=== PATIENT | male | born 1990 | race Caucasian/White ===

== ENCOUNTER 2016-10-19 12:32 | Inpatient (IN) | payer MEDICAID, OTHER ==
[~2016-10-19] VITALS: Ht 188 cm; Wt 89.8 kg
[2016-10-20] MEDS ORDERED: CLINDAMYCIN 900MG IV 50 ML IV ONE (01:30)
[2016-10-20] MEDS ORDERED: LORazepam 2MG/ML-1ML VIAL IV ONE (01:30)
[2016-10-20] MEDS ORDERED: SODIUM CHLORIDE 0.9% 1,000 ML IVB ONE (01:30)
[2016-10-20] MEDS ORDERED: KETOROLAC TROMETH 30 MG/ML 1ML VIAL IV ONE (01:30)
[2016-10-20 01:45] LABS: Basophils # (auto) 0 uL; Basophils % (auto) 0.1 % (0.0-2.0); Eosinophils # (auto) 0.1 uL; Eosinophils % (auto) 0.4 % (0.0-7.0); Hematocrit 38.3 % (41.0-53.0); Hemoglobin 12.9 g/dL (13.5-17.5); Lymphocytes # (auto) 1.3 uL; Lymphocytes % (auto) 7.1 % (10.0-50.0); Mean Corpuscular Hemoglobin 28.7 pg (28.0-32.0); Mean Corpuscular Hgb Conc. 33.7 g/dL (32.0-36.0); Mean Corpuscular Volume 85.2 fL (80.0-100.0); Mean Platelet Volume 7.4 fL (7.4-10.4); Monocytes # (auto) 1.1 uL; Monocytes % (auto) 6.1 % (0.0-12.0); Neutrophils # (auto) 15.9 uL; Neutrophils % (auto) 86.3 % (37.0-80.0); Platelet Count (auto) 420 10^3/uL (140-450); SUSPECT VIEW TRANSMISSION; White Blood Cell 18.5 10^3/uL (4.4-10.8)
[2016-10-20 02:13] LABS: BUN/Creatinine Ratio 26.3; Bilirubin, Total 0.5 mg/dL (0.2-1.0); Calcium 8.2 mg/dL (8.5-10.1); Potassium 4.1 mmol/L (3.5-5.1)
[2016-10-20 02:14] LABS: Total Protein 7.2 g/dL (6.4-8.2)
[2016-10-20] MEDS ORDERED: ACETAMINOPHEN 325 MG TAB PO PRN (05:30)
[2016-10-20] MEDS ORDERED: HYDROcodone-ACET 5/325MG TAB PO PRN (05:30)
[2016-10-20] MEDS ORDERED: VANCOMYCIN PER PHARMACY 0 MG IV SCH (05:30)
[2016-10-20] MEDS ORDERED: ONDANSETRON HCL 4 MG/2 ML VIAL IV PRN (05:30)
[2016-10-20] MEDS ORDERED: TEMAZEPAM 15 MG CAP PO PRN (05:30)
[2016-10-20] MEDS ORDERED: VANCOMYCIN 1GM/250ML D5W 250 ML IV ONE (06:00)
[2016-10-20] MEDS: SODIUM CHLORIDE 0.9% 1,000 ML IV SCH ×2 (06:07→07:07)
[2016-10-20 06:30] VITALS: BP 120/55
[2016-10-20 08:00] VITALS: BP 120/55
[2016-10-20] MEDS ORDERED: VANCOMYCIN 1,500 MG in D5W 5% 250 ML IV SCH (08:00)
[2016-10-20] MEDS ORDERED: cefTRIAXone 1GM/50ML D5W 50 ML IV SCH ×2 (09:00→10:00)
[2016-10-20] MEDS ORDERED: FAMOTIDINE 20 MG TAB PO SCH (10:00)
[2016-10-20] MEDS ORDERED: ENOXAPARIN SOD 40 MG/0.4 ML SYRINGE SC SCH (10:00)
[2016-10-20] MEDS ORDERED: ENOXAPARIN SOD 30 MG/0.3 ML SYRINGE SC SCH (10:00)
[2016-10-20] MEDS: MORPHINE SULF INJ 2 MG/ML SYRINGE 1ML IV PRN ×2 (12:13→18:09)
[2016-10-20 13:00] VITALS: BP 106/46
[2016-10-20 17:00] VITALS: BP 129/65
== END 2016-10-20 21:00 | disposition left against medical advice (07) | DRG 720 ==
LOC: ER 12:32 → CENTRAL 12:33
PROVIDERS: ADMIT Emergency Medicine; ATTEND Nurse Practitioner Acute Care
DX: A41.9 Sepsis, unspecified organism (principal); L03.116 Cellulitis of left lower limb; F15.10 Other stimulant abuse, uncomplicated; L02.414 Cutaneous abscess of left upper limb; Z53.21 Procedure and treatment not carried out due to patient leaving prior to being seen by health care provider; F17.210 Nicotine dependence, cigarettes, uncomplicated; L02.612 Cutaneous abscess of left foot; Z59.0 Homelessness
CPT/HCPCS: 36415; 73630; 80053; 80307; 85025; 86141; 87040; 94761; 96361; 96365; 96366; 96367; 96368; 96372; 96375; J0696; J1885; J3490; J7060

== ENCOUNTER 2018-02-11 06:59 | Emergency (ER) | payer MEDICAID, OTHER ==
[~2018-02-11] VITALS: Ht 157.5 cm; Wt 90.7 kg
[2018-02-11 07:23] VITALS: BP 150/90
[2018-02-11 07:37] LABS: Urine Bacteria NONE SEEN /hpf (None Seen); Urine Blood TRACE /uL (Negative); Urine Mucus FEW (None Seen); Urine Specific Gravity 1.033 (1.001-1.035); Urine WBC 3 /hpf (0 - 3)
[2018-02-11 08:09] LABS: Alcohol, Urine < 3.0 mg/dL (0-5); Amphetamine Screen, Urine POSITIVE (NEGATIVE); Barbiturate Scree,Urine NEGATIVE (NEGATIVE); Benzodiazephine Screen, Urine NEGATIVE (NEGATIVE); Cannabinoid Screen, Urine NEGATIVE (NEGATIVE); Cocaine Screen, Urine NEGATIVE (NEGATIVE); Opiate Scree,Urine POSITIVE (NEGATIVE); Phencyclidine Screen, Urine NEGATIVE (NEGATIVE)
== END 2018-02-11 10:18 | disposition home or self-care (01) ==
LOC: ER 06:59
DX: F15.90 Other stimulant use, unspecified, uncomplicated (principal); F32.9 Major depressive disorder, single episode, unspecified; F41.9 Anxiety disorder, unspecified; F17.210 Nicotine dependence, cigarettes, uncomplicated; Z59.0 Homelessness
CPT/HCPCS: 80307; 81001

== ENCOUNTER 2022-11-15 13:20 | Emergency (ER) | payer MEDICAID ==
[~2022-11-15] VITALS: Ht 188 cm; Wt 140.0 kg
[2022-11-15] MEDS ORDERED: NALOXONE HCL 0.4 MG/ML VIAL ONE (13:28)
[2022-11-15 13:29] VITALS: BP 162/80
[2022-11-15] MEDS ORDERED: NALOXONE HCL 1MG/ML 2ML SYRINGE IV ONE (13:30)
[2022-11-15] MEDS ORDERED: SODIUM CHLORIDE 0.9% 1,000 ML IV ONE (13:30)
== END 2022-11-15 14:56 | disposition left against medical advice (07) ==
LOC: EDBD 13:20 → EDUNIT# 13:20 → ER 13:20
DX: T40.411A Poisoning by fentanyl or fentanyl analogs, accidental (unintentional), initial encounter (principal); S09.8XXA Other specified injuries of head, initial encounter; R41.82 Altered mental status, unspecified; F17.210 Nicotine dependence, cigarettes, uncomplicated; F12.10 Cannabis abuse, uncomplicated; F15.10 Other stimulant abuse, uncomplicated; F14.10 Cocaine abuse, uncomplicated; Z59.00 Homelessness unspecified; Y92.89 Other specified places as the place of occurrence of the external cause
CPT/HCPCS: 93005; 96374; 99283; J2310

== ENCOUNTER 2023-03-15 00:54 | Inpatient (IN) | payer MEDICAID ==
[~2023-03-15] VITALS: Ht 188 cm; Wt 110.2 kg
[2023-03-15 01:30] LABS: Basophils # (auto) 0.1 10 ^3/uL (0-0.2); Basophils % (auto) 0.7 % (0.0-2.0); Eosinophils # (auto) 0.1 10 ^3/uL (0-0.8); Eosinophils % (auto) 0.7 % (0.0-7.0); Hematocrit 42.1 % (41.0-53.0); Hemoglobin 14.4 g/dL (13.5-17.5); Lymphocytes # (auto) 1.8 10 ^3/uL (0.4-5.4); Lymphocytes % (auto) 14.3 % (10.0-50.0); Mean Corpuscular Hgb Conc. 34.2 g/dL (32.0-36.0); Mean Corpuscular Volume 87.6 fL (80.0-100.0); Monocytes # (auto) 1.1 10 ^3/uL (0-1.3); Monocytes % (auto) 8.3 % (0.0-12.0); Neutrophils # (auto) 9.7 10 ^3/uL (1.6-8.6); Red Blood Cells 4.81 10^6/uL (4.5-5.90); Red Cell Distribution Width 14.5 % (11.8-14.3); White Blood Cell 12.7 10^3/uL (4.4-10.8)
[2023-03-15 01:48] LABS: Alanine Aminotransferase 28 U/L (7-40); Alkaline Phosphatase 81 U/L (46-116); Anion Gap 4 (5-15); Aspartate Aminotransferase 175 U/L (13-40); Blood Alcohol < 3.0 mg/dL (<10); Blood Urea Nitrogen 15 mg/dL (9-23); Calcium 8.9 mg/dL (8.7-10.4); Carbon Dioxide 30 mmol/L (20-30); Chloride 105 mmol/L (98-107); Glucose 125 mg/dL (74-106); Magnesium 1.9 mg/dL (1.6-2.6); Sodium 139 mmol/L (136-145)
[2023-03-15 01:49] LABS: Acetaminophen < 2.0 UG/ML (10.0-20.0); Bilirubin, Total 0.9 mg/dL (0.2-1.0); Total Protein 7.6 g/dL (5.7-8.2)
[2023-03-15] MEDS ORDERED: LORazepam 2MG/ML-1ML VIAL IV ONE (02:00)
[2023-03-15] MEDS ORDERED: SODIUM CHLORIDE 0.9% 1,000 ML IV ONE ×2 (02:00→03:30)
[2023-03-15 02:32] LABS: Amphetamine Screen, Urine Pos (NEGATIVE); Barbiturate Scree,Urine Neg (NEGATIVE); Benzodiazephine Screen, Urine Neg (NEGATIVE); Cocaine Screen, Urine Neg (NEGATIVE); Opiate Scree,Urine Pos (NEGATIVE); Phencyclidine Screen, Urine Neg (NEGATIVE)
[2023-03-15 02:33] LABS: Cannabinoid Screen, Urine Pos (NEGATIVE)
[2023-03-15 02:40] LABS: Creatine Kinase IFCC 8294 U/L (46-171); Salicylate < 3.0 mg/dL (2.8-20.0)
[2023-03-15 02:44] LABS: Urine Bacteria NONE SEEN /hpf (None Seen); Urine Blood 2+ /uL (Negative); Urine Clarity Clear (Clear); Urine Color Yellow (Yellow); Urine Mucus FEW (None Seen); Urine Protein, UAD 1+ (Negative); Urine Specific Gravity 1.033 (1.001-1.035); Urine WBC 6 /hpf (0 - 3)
[2023-03-15 04:22] VITALS: O2SAT 98
[2023-03-15 07:39] VITALS: PULSE 66; RESP 10; O2SAT 98
[2023-03-15] MEDS ORDERED: NITROGLYCERIN 0.4 MG SL TAB SL PRN (08:00)
[2023-03-15] MEDS ORDERED: DOCUSATE SOD 100 MG CAP PO PRN (08:00)
[2023-03-15] MEDS ORDERED: ONDANSETRON HCL 4 MG/2 ML VIAL IV PRN (08:00)
[2023-03-15] MEDS ORDERED: HYDROcodone-ACET 5/325MG TAB PO PRN (08:00)
[2023-03-15] MEDS ORDERED: MORPHINE SULFATE INJ 2 MG/ml SYRG IV PRN ×2 (08:00)
[2023-03-15] MEDS: SODIUM CHLORIDE 0.9% 1,000 ML IV SCH ×3 (08:11→23:59)
[2023-03-15 08:25] LABS: Basophils # (auto) 0.1 10 ^3/uL (0-0.2); Basophils % (auto) 1.2 % (0.0-2.0); Eosinophils # (auto) 0.1 10 ^3/uL (0-0.8); Eosinophils % (auto) 1.1 % (0.0-7.0); Hematocrit 37.6 % (41.0-53.0); Lymphocytes # (auto) 2.6 10 ^3/uL (0.4-5.4); Lymphocytes % (auto) 26.7 % (10.0-50.0); Mean Corpuscular Hemoglobin 29.9 pg (28.0-32.0); Mean Corpuscular Hgb Conc. 34.5 g/dL (32.0-36.0); Mean Corpuscular Volume 86.6 fL (80.0-100.0); Monocytes # (auto) 1.2 10 ^3/uL (0-1.3); Neutrophils # (auto) 5.7 10 ^3/uL (1.6-8.6); Nucleated Red Blood Cells % 0.2 %; Red Blood Cells 4.34 10^6/uL (4.5-5.90); Red Cell Distribution Width 14.7 % (11.8-14.3); White Blood Cell 9.7 10^3/uL (4.4-10.8)
[2023-03-15] MEDS: cefTRIAXone 1GM/50ML D5W 50 ML IV SCH (08:37)
[2023-03-15 08:47] LABS: Alanine Aminotransferase 21 U/L (7-40); Albumin 3.5 g/dL (3.2-4.8); Alkaline Phosphatase 57 U/L (46-116); Aspartate Aminotransferase 108 U/L (13-40); BUN/Creatinine Ratio 14.1 (10.0-20.0); Bilirubin, Total 0.8 mg/dL (0.2-1.0); Blood Urea Nitrogen 10 mg/dL (9-23); Carbon Dioxide 26 mmol/L (20-30); Glucose 108 mg/dL (74-106)
[2023-03-15 08:58] LABS: Anion Gap 5 (5-15); Chloride 111 mmol/L (98-107); Creatine Kinase IFCC 5038 U/L (46-171); Potassium 3.6 mmol/L (3.5-5.1); Sodium 142 mmol/L (136-145)
[2023-03-15 09:52] LABS: Platelet Estimate Adequate
[2023-03-15] MEDS ORDERED: ACETAMINOPHEN 325 MG TAB PO PRN (17:15)
[2023-03-15 20:00] VITALS: PULSE 64
[2023-03-16 05:00] VITALS: BP 131/75; PULSE 68; RESP 16; TEMP 97.9; O2SAT 95
[2023-03-16 08:00] VITALS: BP 117/72; PULSE 59; PULSE 67; RESP 19; RESP 20; TEMP 97.3; O2SAT 97
[2023-03-16] MEDS: SODIUM CHLORIDE 0.9% 1,000 ML IV SCH ×2 (09:39→17:13)
[2023-03-16] MEDS: cefTRIAXone 1GM/50ML D5W 50 ML IV SCH (09:40)
[2023-03-16] MEDS: LORazepam 2MG/ML-1ML VIAL IV PRN ×2 (09:40→21:08)
[2023-03-16 11:43] LABS: Basophils # (auto) 0 10 ^3/uL (0-0.2); Basophils % (auto) 0.6 % (0.0-2.0); Eosinophils # (auto) 0.1 10 ^3/uL (0-0.8); Eosinophils % (auto) 1.1 % (0.0-7.0); Hematocrit 38.7 % (41.0-53.0); Hemoglobin 13.6 g/dL (13.5-17.5); Lymphocytes # (auto) 1.5 10 ^3/uL (0.4-5.4); Lymphocytes % (auto) 22.5 % (10.0-50.0); Mean Corpuscular Hemoglobin 30.8 pg (28.0-32.0); Mean Corpuscular Volume 87.8 fL (80.0-100.0); Monocytes # (auto) 0.4 10 ^3/uL (0-1.3); Monocytes % (auto) 5.7 % (0.0-12.0); Neutrophils # (auto) 4.7 10 ^3/uL (1.6-8.6); Neutrophils % (auto) 70.1 % (37.0-80.0); Red Blood Cells 4.41 10^6/uL (4.5-5.90); Red Cell Distribution Width 14.2 % (11.8-14.3); White Blood Cell 6.8 10^3/uL (4.4-10.8)
[2023-03-16 12:01] LABS: Alanine Aminotransferase 15 U/L (7-40); Albumin 3.5 g/dL (3.2-4.8); Alkaline Phosphatase 59 U/L (46-116); Anion Gap 5 (5-15); Aspartate Aminotransferase 45 U/L (13-40); BUN/Creatinine Ratio 11.7 (10.0-20.0); Blood Urea Nitrogen 7 mg/dL (9-23); Calcium 8.6 mg/dL (8.7-10.4); Carbon Dioxide 26 mmol/L (20-30); Chloride 111 mmol/L (98-107); Glucose 109 mg/dL (74-106); Potassium 3.6 mmol/L (3.5-5.1); Sodium 142 mmol/L (136-145)
[2023-03-16 12:02] LABS: Bilirubin, Total 0.5 mg/dL (0.2-1.0); Total Protein 6.2 g/dL (5.7-8.2)
[2023-03-16 12:12] LABS: Creatine Kinase IFCC 1866 U/L (46-171)
[2023-03-16 13:00] VITALS: BP 134/86; PULSE 58; RESP 20; TEMP 98.6; O2SAT 99
[2023-03-16 17:00] VITALS: BP 116/67; PULSE 71; RESP 20; TEMP 98.7; O2SAT 97
[2023-03-16 20:00] VITALS: PULSE 66; RESP 18; O2SAT 96
[2023-03-16 22:00] VITALS: BP 145/67; PULSE 64; RESP 18; TEMP 97.5; O2SAT 96
[2023-03-17] MEDS: SODIUM CHLORIDE 0.9% 1,000 ML IV SCH ×3 (01:11→11:42)
[2023-03-17 05:00] VITALS: BP 138/87; PULSE 56; RESP 18; TEMP 97.4; O2SAT 96
[2023-03-17 07:30] VITALS: PULSE 55; O2SAT 97
[2023-03-17] MEDS: cefTRIAXone 1GM/50ML D5W 50 ML IV SCH (08:44)
[2023-03-17 09:00] VITALS: BP 136/80; PULSE 56; RESP 20; TEMP 98; O2SAT 96
[2023-03-17 12:33] VITALS: TEMP 36.7
[2023-03-17 12:43] VITALS: PULSE 55; O2SAT 97
== END 2023-03-17 14:20 | disposition home or self-care (01) | DRG 720 ==
LOC: EDBD 00:54 → ER 00:56 → TELE 07:53 → TELE-EAST 19:31
PROVIDERS: ADMIT Internal Medicine
DX: A41.9 Sepsis, unspecified organism (principal); G92.8 Other toxic encephalopathy; N17.9 Acute kidney failure, unspecified; M62.82 Rhabdomyolysis; N30.90 Cystitis, unspecified without hematuria; I10 Essential (primary) hypertension; F17.210 Nicotine dependence, cigarettes, uncomplicated; F41.9 Anxiety disorder, unspecified; F19.10 Other psychoactive substance abuse, uncomplicated; Z59.00 Homelessness unspecified; Y92.89 Other specified places as the place of occurrence of the external cause; F19.129 Other psychoactive substance abuse with intoxication, unspecified
CPT/HCPCS: 36415; 71045; 80053; 80307; 80320; 80329; 81001; 82550; 83605; 83735; 84484; 85025; 96361; 96374; G0378; J0696

== ENCOUNTER 2023-04-02 13:58 | Emergency (ER) | payer MEDICAID ==
[~2023-04-02] VITALS: Ht 188 cm; Wt 100.0 kg
[2023-04-02] MEDS ORDERED: NALOXONE HCL 0.4 MG/ML VIAL IV ONE (14:15)
[2023-04-02 15:02] VITALS: PULSE 96; RESP 17; O2SAT 94
[2023-04-02 15:12] LABS: Basophils # (auto) 0.1 10 ^3/uL (0-0.2); Basophils % (auto) 0.6 % (0.0-2.0); Eosinophils # (auto) 0.1 10 ^3/uL (0-0.8); Eosinophils % (auto) 0.7 % (0.0-7.0); Hematocrit 39.8 % (41.0-53.0); Lymphocytes # (auto) 1.7 10 ^3/uL (0.4-5.4); Lymphocytes % (auto) 10.1 % (10.0-50.0); Mean Corpuscular Hemoglobin 30.6 pg (28.0-32.0); Mean Corpuscular Volume 87.3 fL (80.0-100.0); Monocytes # (auto) 1.3 10 ^3/uL (0-1.3); Neutrophils # (auto) 13.3 10 ^3/uL (1.6-8.6); Neutrophils % (auto) 80.6 % (37.0-80.0); Nucleated Red Blood Cells % 0.1 %; Red Blood Cells 4.56 10^6/uL (4.5-5.90); Red Cell Distribution Width 13.3 % (11.8-14.3); White Blood Cell 16.6 10^3/uL (4.4-10.8)
[2023-04-02 15:31] LABS: Alanine Aminotransferase 14 U/L (7-40); Albumin 3.9 g/dL (3.2-4.8); Alkaline Phosphatase 87 U/L (46-116); Anion Gap 9 (5-15); Aspartate Aminotransferase 19 U/L (13-40); BUN/Creatinine Ratio 23.8 (10.0-20.0); Blood Alcohol < 3.0 mg/dL (<10); Blood Urea Nitrogen 25 mg/dL (9-23); Calcium 8.9 mg/dL (8.5-10.1); Carbon Dioxide 28 mmol/L (20-30); Chloride 101 mmol/L (98-107); Glucose 82 mg/dL (74-106); Potassium 3.1 mmol/L (3.5-5.1); Sodium 138 mmol/L (136-145)
[2023-04-02 15:32] LABS: Bilirubin, Total 1.9 mg/dL (0.2-1.0); Total Protein 6.5 g/dL (5.7-8.2)
[2023-04-02] MEDS ORDERED: POTASSIUM CHL 20 Meq TABLET PO ONE (16:45)
[2023-04-02 19:30] VITALS: PULSE 83; RESP 14; TEMP 97.8; O2SAT 96
[2023-04-02 19:42] LABS: Amphetamine Screen, Urine Pos (NEGATIVE)
[2023-04-02 19:43] LABS: Barbiturate Scree,Urine Neg (NEGATIVE); Benzodiazephine Screen, Urine Neg (NEGATIVE); Cannabinoid Screen, Urine Neg (NEGATIVE); Cocaine Screen, Urine Neg (NEGATIVE); Opiate Scree,Urine Neg (NEGATIVE); Phencyclidine Screen, Urine Neg (NEGATIVE)
[2023-04-02 20:01] VITALS: BP 124/65; PULSE 80; RESP 14; O2SAT 98
[2023-04-10] MEDS ORDERED: AMOX875T4 PO (00:34)
[2023-04-10] MEDS ORDERED: IBUP-1456 PO (00:34)
== END 2023-04-02 20:30 | disposition home or self-care (01) ==
LOC: ER 13:58 → EDUNIT# 13:58 → EDBD 13:58 → ER 20:30
DX: T40.411A Poisoning by fentanyl or fentanyl analogs, accidental (unintentional), initial encounter (principal); F17.210 Nicotine dependence, cigarettes, uncomplicated; F15.90 Other stimulant use, unspecified, uncomplicated; Z91.81 History of falling; Z79.899 Other long term (current) drug therapy; Y92.89 Other specified places as the place of occurrence of the external cause
CPT/HCPCS: 36415; 70450; 72125; 80053; 80307; 80320; 85025; 93005

== ENCOUNTER 2023-12-27 19:48 | Emergency (ER) | payer MEDICAID ==
[~2023-12-27] VITALS: Ht 180.3 cm; Wt 100.0 kg
[~2023-12-27 19:48] MED LIST: AMOX875T4 PO; IBUP-1456 PO
[2023-12-27 19:50] VITALS: BP 163/89; PULSE 113; RESP 20; O2SAT 99
[2023-12-27] MEDS: ONDANSETRON HCL 4 MG/2 ML VIAL IV ONE (20:00)
[2023-12-27] MEDS: SODIUM CHLORIDE 0.9% 1,000 ML IV ONE (20:00)
[2023-12-28] MEDS ORDERED: CEPH500C PO (09:37)
[2023-12-28] MEDS ORDERED: IBUP-1456 PO (09:37)
== END 2023-12-27 20:37 | disposition left against medical advice (07) ==
LOC: EDBD 19:48 → ER 19:48
DX: T40.601A Poisoning by unspecified narcotics, accidental (unintentional), initial encounter (principal); T40.411A Poisoning by fentanyl or fentanyl analogs, accidental (unintentional), initial encounter; R11.2 Nausea with vomiting, unspecified; F12.10 Cannabis abuse, uncomplicated; F17.210 Nicotine dependence, cigarettes, uncomplicated; F19.10 Other psychoactive substance abuse, uncomplicated; Y92.89 Other specified places as the place of occurrence of the external cause

== ENCOUNTER 2023-12-28 09:10 | Emergency (ER) | payer MEDICAID ==
[~2023-12-28] VITALS: Ht 188 cm; Wt 118.1 kg
[2023-12-28 09:23] VITALS: BP 131/72; PULSE 85; RESP 20; TEMP 98.4; O2SAT 96
[2023-12-28] MEDS ORDERED: IBUP-1456 PO (09:37)
[2023-12-28] MEDS ORDERED: CEPH500C PO (09:37)
[2023-12-28] MEDS: LIDOCAINE 1% HCL (LOCAL ANESTH.) INJ 20ML MDV IJ ONE (09:54)
[2023-12-28] MEDS: LIDOCAINE 1% HCL (LOCAL ANESTH.) INJ 20ML MDV ONE (09:54)
[2023-12-28] MEDS: cefTRIAXone SOD 1,000 MG VL IM ONE (09:55)
[2023-12-28] MEDS: IBUPROFEN 800 MG TAB PO ONE (09:56)
== END 2023-12-28 10:06 | disposition home or self-care (01) ==
LOC: ER 09:10 → EDBD 09:10 → ER 10:04
DX: S90.822A Blister (nonthermal), left foot, initial encounter (principal); S90.821A Blister (nonthermal), right foot, initial encounter; F12.10 Cannabis abuse, uncomplicated; F17.210 Nicotine dependence, cigarettes, uncomplicated; X58.XXXA Exposure to other specified factors, initial encounter; Y93.89 Activity, other specified; Y92.89 Other specified places as the place of occurrence of the external cause; Y99.8 Other external cause status
CPT/HCPCS: 96372; 99283; J0696; J2001